=== PATIENT | male | born 1970 | race Caucasian/White ===

== ENCOUNTER 2021-01-27 08:18 | Observation (INO) | payer BC, OTHER ==
--- NOTE | 2021-01-27 08:57 | EDM.PDOC ---
ED HPI GENERAL MEDICAL PROBLEM - General Chief Complaint: Chest Pain Stated Complaint: CHEST PAIN Time Seen by Provider: 01/27/21 08:46 Source of Information: Reports: Patient - History of Present Illness INITIAL COMMENTS - FREE TEXT/NARRATIVE: 50-year-old male history of hypertension diabetes and obesity presents complaining of chest discomfort. He states that it started on Tuesday and was present all day yesterday. He states it feels like a water balloon in his chest like he needs to burp and get the air out. He has noticed that he has been coughing has had some chills and then the glands around his neck are tender. No [place] fever. Patient is vaccinated against Covid. Symptoms have been constant throughout all day yesterday as well. Not worse with movement, cough, inspiration. Mildly improved with belching. Moderate symptoms. Patient denies history of blood clot. No swelling in the legs. No recent travel or injury or cancer or surgery. Patient states he had a stress test many years ago but nothing recently. Upper Anterior Chest Pain Score (Numeric/FACES): 3 - Related Data Allergies Allergy/AdvReac Type Severity Reaction Status Date / Time No Known Allergies Allergy Verified 01/27/21 08:25 Home Meds: Home Meds Allopurinol [Zyloprim] 1 tab PO DAILY 01/27/21 [History] Insulin Glargine,Hum.Rec.Anlog [Touafshin Solostar] 88 units INJECT DAILY 01/27/21 [History] Lisinopril/Hydrochlorothiazide [Lisinopril-HCTZ 10-12.5 MG] 1 tab PO DAILY 01/27/21 [History] Pravastatin [Pravachol] 20 mg PO DAILY 01/27/21 [History] Semaglutide [Ozempic] 0.25 mg SQ Q7D 01/27/21 [History] metFORMIN [Glucophage XR] 1,000 mg PO DAILY 01/27/21 [History] Past Medical History HEENT History: Reports: Impaired Vision Other HEENT History: wears glasses Cardiovascular History: Reports: High Cholesterol, Hypertension Respiratory History: Reports: Bronchitis, Recurrent Gastrointestinal History: Reports: GERD Endocrine/Metabolic History: Reports: Diabetes, Type II - Infectious Disease History Infectious Disease History: Reports: Chicken Pox - Past Surgical History HEENT Surgical History: Reports: Oral Surgery Cardiovascular Surgical History: Reports: None GI Surgical History: Reports: None Social & Family History - Family History Family Medical History: No Pertinent Family History - Tobacco Use Tobacco Use Status *Q: Former Tobacco User Years of Tobacco use: 5 Packs/Tins Daily: 1 Used Tobacco, but Quit: Yes Month/Year Tobacco Last Used: 12/2001 - Caffeine Use Caffeine Use: Reports: Coffee - Alcohol Use Days Per Week of Alcohol Use: 1 Number of Drinks Per Day: 6 Total Drinks Per Week: 6 - Recreational Drug Use Recreational Drug Use: No ED ROS GENERAL - Review of Systems Review Of Systems: See Below Constitutional: Reports: Chills. Denies: Fever HEENT: Reports: Other (Tenderness to the glans near his neck). Denies: Throat Pain Respiratory: Reports: Other (Patient is always short of breath when he walks because he says he is out of shape and perhaps this could be a little bit worse) Cardiovascular: Reports: Chest Pain, Other (She states many years ago they placed him on a Holter monitor) GI/Abdominal: Reports: No Symptoms : Reports: No Symptoms Musculoskeletal: Reports: Other (Leg swelling) Skin: Reports: No Symptoms Neurological: Reports: No Symptoms Psychiatric: Reports: No Symptoms Hematologic/Lymphatic: Reports: No Symptoms ED EXAM, GENERAL - Physical Exam Exam: See Below Free Text/Narrative:: CONSTITUTIONAL: well appearing in no acute distress SKIN: Warm, dry, and intact without rash HENT: Normocephalic, atraumatic, PULMONARY: clear to ausculation bilaterally. No rales, rhonchi, wheezing CARDIOVASCULAR: regular rate, No murmur, rubs, or gallops GASTROINTESTINAL: soft, nondistended, nontender NEUROLOGIC: normal speech, light touch and motor function grossly intact MUSCULOSKELETAL: no gross deformities, atraumatic PSYCHIATRIC: normal mood and affect #1 Interpretation Time: 08:20 EKG Interpretation Comments: EKG: NSR, nonspecific ST/T changes, Rate -82. Cannot exclude delta wave Course - Vital Signs Text/Narrative:: Patient reevaluated and now the and patient are using the terms pressure. I walked the patient and did not make the chest discomfort present. Patient still has chest discomfort that is present. The story is now changing a bit and that there does not seem to be too much of a cough. There was maybe some mild cough at one point in time for very short period of time yesterday. Have not heard the patient cough here. Patient is now saying that the neck discomfort is not uncomfortable when he presses in the lymph nodes but he just feels it on both sides of the neck. This could be radiation. Patient was complaining of some degree of headache which I thought likely indicated more toward infectious etiology but states he gets headache every day so this cannot be reliably a sign of infection at this immediate time. There was patient states he was not able to get warm yesterday but they took his temperature at that time there was no fever. Given the patient's risk factors and description of the pain patient be admitted for telemetry monitoring and serial cardiac enzymes. Patient given aspirin and nitro. Last Recorded V/S: Last Vital Signs Temp 37.2 C 01/27/21 08:31 Pulse 86 01/27/21 10:23 Resp 18 01/27/21 10:23 BP 124/75 01/27/21 10:23 Pulse Ox 95 01/27/21 10:23 - Orders/Labs/Meds Orders: Active Orders 24 hr Category Date Time Status Aspirin Med 01/27/21 10:45 Ordered 162 mg PO DAILY Nitroglycerin [Nitrostat] Med 01/27/21 10:40 Once 0.4 mg SL ONETIME ONE Labs: Laboratory Tests 01/27/21 01/27/21 01/27/21 Range/Units 08:20 08:20 08:20 WBC 5.43 (4.0-11.0) K/uL RBC 4.88 (4.50-5.90) M/uL Hgb 15.1 (13.0-17.0) g/dL Hct 44.7 (38.0-50.0) % MCV 91.6 (80.0-98.0) fL MCH 30.9 (27.0-32.0) pg MCHC 33.8 (31.0-37.0) g/dL RDW Std Deviation 45.0 (28.0-62.0) fl RDW Coeff of Reba 14 (11.0-15.0) % Plt Count 168 (150-400) K/uL MPV 11.50 (7.40-12.00) fL Neut % (Auto) 75.1 (48.0-80.0) % Lymph % (Auto) 13.3 L (16.0-40.0) % [place] % (Auto) 8.1 (0.0-15.0) % Eos % (Auto) 3.3 (0.0-7.0) % Baso % (Auto) 0.2 (0.0-1.5) % Neut # (Auto) 4.1 (1.4-5.7) K/uL Lymph # (Auto) 0.7 (0.6-2.4) K/uL [place] # (Auto) 0.4 (0.0-0.8) K/uL Eos # (Auto) 0.2 (0.0-0.7) K/uL Baso # (Auto) 0.0 (0.0-0.1) K/uL Nucleated RBC % 0.0 /100WBC Nucleated RBCs # 0 K/uL INR 0.92 Sodium 138 (136-148) mmol/L Potassium 4.5 (3.5-5.1) mmol/L Chloride 103 (98-107) mmol/L Carbon Dioxide 25.0 (21.0-32.0) mmol/L BUN 29 H (7.0-18.0) mg/dL Creatinine 1.6 H (0.8-1.3) mg/dL Est Cr Clr Drug Dosing 50.95 mL/min Estimated GFR (MDRD) 46.4 ml/min Glucose 147 H (74-106) mg/dL POC Glucose (70-99) mg/dL Calcium 8.3 L (8.5-10.1) mg/dL Total Bilirubin 0.5 (0.2-1.0) mg/dL AST 17 (15-37) IU/L ALT 39 (14-63) IU/L Alkaline Phosphatase 112 (46-116) U/L Troponin I < 0.050 (0.000-0.056) ng/mL B-Natriuretic Peptide (<100) PG/ML Total Protein 6.9 (6.4-8.2) g/dL Albumin 3.1 L (3.4-5.0) g/dL Globulin 3.8 (2.6-4.0) g/dL Albumin/Globulin Ratio 0.8 L (0.9-1.6) SARS-CoV-2 RNA (KVNG) (NEGATIVE) 01/27/21 01/27/21 01/27/21 Range/Units 08:20 09:01 10:26 WBC (4.0-11.0) K/uL RBC (4.50-5.90) M/uL Hgb (13.0-17.0) g/dL Hct (38.0-50.0) % MCV (80.0-98.0) fL MCH (27.0-32.0) pg MCHC (31.0-37.0) g/dL RDW Std Deviation (28.0-62.0) fl RDW Coeff of Reba (11.0-15.0) % Plt Count (150-400) K/uL MPV (7.40-12.00) fL Neut % (Auto) (48.0-80.0) % Lymph % (Auto) (16.0-40.0) % [place] % (Auto) (0.0-15.0) % Eos % (Auto) (0.0-7.0) % Baso % (Auto) (0.0-1.5) % Neut # (Auto) (1.4-5.7) K/uL Lymph # (Auto) (0.6-2.4) K/uL [place] # (Auto) (0.0-0.8) K/uL Eos # (Auto) (0.0-0.7) K/uL Baso # (Auto) (0.0-0.1) K/uL Nucleated RBC % /100WBC Nucleated RBCs # K/uL INR Sodium (136-148) mmol/L Potassium (3.5-5.1) mmol/L Chloride (98-107) mmol/L Carbon Dioxide (21.0-32.0) mmol/L BUN (7.0-18.0) mg/dL Creatinine (0.8-1.3) mg/dL Est Cr Clr Drug Dosing mL/min Estimated GFR (MDRD) ml/min Glucose (74-106) mg/dL POC Glucose 139 H (70-99) mg/dL Calcium (8.5-10.1) mg/dL Total Bilirubin (0.2-1.0) mg/dL AST (15-37) IU/L ALT (14-63) IU/L Alkaline Phosphatase (46-116) U/L Troponin I (0.000-0.056) ng/mL B-Natriuretic Peptide < 2 (<100) PG/ML Total Protein (6.4-8.2) g/dL Albumin (3.4-5.0) g/dL Globulin (2.6-4.0) g/dL Albumin/Globulin Ratio (0.9-1.6) SARS-CoV-2 RNA (KVNG) NEGATIVE (NEGATIVE) Meds: Medications Discontinued Medications Generic Name Dose Route Start Last Admin Trade Name Annalisa PRN Reason Stop Dose Admin Ibuprofen 600 mg 01/27/21 09:37 01/27/21 09:46 Ibuprofen 600 Mg Tab PO 01/27/21 09:38 600 mg ONETIME ONE Administration Departure - Departure Time of Disposition: 10:46 Disposition: Admitted As Inpatient 68 Condition: Good Clinical Impression: Chest pain - Discharge Information Referrals: PCP,None [Primary Care Provider] - Forms: ED Department Discharge Sepsis Event Note (ED) - Evaluation Sepsis Screening Result: No Definite Risk - Focused Exam Vital Signs: Vital Signs Temp Pulse Resp BP Pulse Ox 01/27/21 10:23 86 18 124/75 95 01/27/21 09:47 79 16 127/76 98 01/27/21 08:31 37.2 C 80 16 149/83 H 98 - My Orders Last 24 Hours: My Active Orders 01/27/21 10:40 Nitroglycerin [Nitrostat] 0.4 mg SL ONETIME ONE 01/27/21 10:45 Aspirin 162 mg PO DAILY - Assessment/Plan Last 24 Hours: My Active Orders 01/27/21 10:40 Nitroglycerin [Nitrostat] 0.4 mg SL ONETIME ONE 01/27/21 10:45 Aspirin 162 mg PO DAILY
[2021-01-27 09:19] LABS: BLOOD UREA NITROGEN,BUN 29 mg/dL (7.0-18.0); CHLORIDE,CL 103 mmol/L (98-107); GLUCOSE RANDOM 147 mg/dL (74-106); POTASSIUM,K 4.5 mmol/L (3.5-5.1); SODIUM,NA 138 mmol/L (136-148)
[2021-01-27] MEDS ORDERED: Ibuprofen 600 MG Tab PO ONE (09:37)
--- NOTE | 2021-01-27 09:48 | CR ---
Indication: Chest Pain Comparison: CT chest March 23, 2019 Technique: Single AP view chest Findings: There is hyperinflation and chronic interstitial change. There is calcified granuloma seen within the right lung base. There is basilar atelectasis versus parenchymal scarring. The cardiac silhouette is mildly prominent. The bony thorax is grossly intact. Impression: Hyperinflation and chronic interstitial change with stable sequela of granulomatous disease. No dense consolidation. Dictated by Raciel Parr MD @ 01/27/2021 9:46:15 AM (Electronically Signed)
[2021-01-27] MEDS ORDERED: Nitroglycerin 0.4 MG Tab.SL SL ONE (10:40)
[2021-01-27] MEDS: Aspirin 81 MG Tab.Chew PO SCH (10:46)
[2021-01-27] MEDS ORDERED: Glucagon,Human Recombinant 1 MG Vial IM PRN (14:31)
[2021-01-27] MEDS ORDERED: 50% Dextrose in Water 50 ML Syringe IVPUSH PRN (14:31)
--- NOTE | 2021-01-27 16:38 | PCM.HP.2 ---
H&P History of Present Illness - General Date of Service: 01/27/21 Admit Problem/Dx: Admission Diagnosis/Problem Admission Diagnosis/Problem Chest pain - History of Present Illness Initial Comments - Free Text/Narative: 50 yo male with pmh of hypertension and DM who presents with a three day history of chest pain. The pain is a constant substernal burn that radiates to the throat. Sometimes he has a burbing sensation. Pain does not change with rest or exertion. Upper Anterior Chest Pain Score (Numeric/FACES): 2 - Related Data Allergies/Adverse Reactions: Allergies Allergy/AdvReac Type Severity Reaction Status Date / Time No Known Allergies Allergy Verified 01/27/21 15:35 Home Medications: Home Meds Allopurinol [Zyloprim] 1 tab PO DAILY 01/27/21 [History] Insulin Glargine,Hum.Rec.Anlog [Toujeo Solostar] 88 units INJECT DAILY 01/27/21 [History] Lisinopril/Hydrochlorothiazide [Lisinopril-HCTZ 10-12.5 MG] 1 tab PO DAILY 01/27/21 [History] Pravastatin [Pravachol] 20 mg PO DAILY 01/27/21 [History] Semaglutide [Ozempic] 0.25 mg SQ Q7D 01/27/21 [History] metFORMIN [Glucophage XR] 1,000 mg PO DAILY 01/27/21 [History] Omeprazole 20 mg PO DAILY #20 tablet. 01/28/21 [Rx] Past Medical History HEENT History: Reports: Impaired Vision Other HEENT History: wears glasses Cardiovascular History: Reports: High Cholesterol, Hypertension Respiratory History: Reports: Bronchitis, Recurrent Gastrointestinal History: Reports: GERD Musculoskeletal History: Reports: Gout Endocrine/Metabolic History: Reports: Diabetes, Type II - Infectious Disease History Infectious Disease History: Reports: Chicken Pox - Past Surgical History HEENT Surgical History: Reports: Oral Surgery Cardiovascular Surgical History: Reports: None GI Surgical History: Reports: None Social & Family History - Family History Family Medical History: No Pertinent Family History - Tobacco Use Tobacco Use Status *Q: Former Tobacco User Years of Tobacco use: 5 Packs/Tins Daily: 1 Used Tobacco, but Quit: Yes Month/Year Tobacco Last Used: 2001 Second Hand Smoke Exposure: No - Caffeine Use Caffeine Use: Reports: Coffee - Alcohol Use Days Per Week of Alcohol Use: 1 Number of Drinks Per Day: 6 Total Drinks Per Week: 6 - Recreational Drug Use Recreational Drug Use: No H&P Review of Systems - Review of Systems: Review Of Systems: Comprehensive ROS is negative, except as noted in HPI. Exam - Exam Exam: See Below - Vital Signs Vital Signs: Last Vital Signs Temp 36.3 C 01/27/21 16:28 Pulse 75 01/27/21 16:28 Resp 18 01/27/21 16:28 BP 160/74 H 01/27/21 16:28 Pulse Ox 99 01/27/21 16:28 Weight: 112.718 kg - Exam General: Alert, Severe Distress HEENT: Mucosa Moist & [place] Lungs: Clear to Auscultation, Normal Respiratory Effort Cardiovascular: Regular Rate, Regular Rhythm GI/Abdominal Exam: Normal Bowel Sounds, Soft, Non-Tender Extremities: Non-Tender, No Pedal Edema Skin: Warm, Dry, Intact Neurological: No: Focal Deficit - Patient Data Lab Results Last 24 hrs: Laboratory Results - last 24 hr 01/27/21 01/27/21 01/27/21 Range/Units 08:20 08:20 08:20 WBC 5.43 (4.0-11.0) K/uL RBC 4.88 (4.50-5.90) M/uL Hgb 15.1 (13.0-17.0) g/dL Hct 44.7 (38.0-50.0) % MCV 91.6 (80.0-98.0) fL MCH 30.9 (27.0-32.0) pg MCHC 33.8 (31.0-37.0) g/dL RDW Std Deviation 45.0 (28.0-62.0) fl RDW Coeff of Reba 14 (11.0-15.0) % Plt Count 168 (150-400) K/uL MPV 11.50 (7.40-12.00) fL Neut % (Auto) 75.1 (48.0-80.0) % Lymph % (Auto) 13.3 L (16.0-40.0) % [place] % (Auto) 8.1 (0.0-15.0) % Eos % (Auto) 3.3 (0.0-7.0) % Baso % (Auto) 0.2 (0.0-1.5) % Neut # (Auto) 4.1 (1.4-5.7) K/uL Lymph # (Auto) 0.7 (0.6-2.4) K/uL [place] # (Auto) 0.4 (0.0-0.8) K/uL Eos # (Auto) 0.2 (0.0-0.7) K/uL Baso # (Auto) 0.0 (0.0-0.1) K/uL Nucleated RBC % 0.0 /100WBC Nucleated RBCs # 0 K/uL INR 0.92 Sodium 138 (136-148) mmol/L Potassium 4.5 (3.5-5.1) mmol/L Chloride 103 (98-107) mmol/L Carbon Dioxide 25.0 (21.0-32.0) mmol/L BUN 29 H (7.0-18.0) mg/dL Creatinine 1.6 H (0.8-1.3) mg/dL Est Cr Clr Drug Dosing 50.95 mL/min Estimated GFR (MDRD) 46.4 ml/min Glucose 147 H (74-106) mg/dL POC Glucose (70-99) mg/dL Calcium 8.3 L (8.5-10.1) mg/dL Total Bilirubin 0.5 (0.2-1.0) mg/dL AST 17 (15-37) IU/L ALT 39 (14-63) IU/L Alkaline Phosphatase 112 (46-116) U/L Troponin I < 0.050 (0.000-0.056) ng/mL B-Natriuretic Peptide (<100) PG/ML Total Protein 6.9 (6.4-8.2) g/dL Albumin 3.1 L (3.4-5.0) g/dL Globulin 3.8 (2.6-4.0) g/dL Albumin/Globulin Ratio 0.8 L (0.9-1.6) SARS-CoV-2 RNA (KVNG) (NEGATIVE) 01/27/21 01/27/21 01/27/21 Range/Units 08:20 09:01 10:26 WBC (4.0-11.0) K/uL RBC (4.50-5.90) M/uL Hgb (13.0-17.0) g/dL Hct (38.0-50.0) % MCV (80.0-98.0) fL MCH (27.0-32.0) pg MCHC (31.0-37.0) g/dL RDW Std Deviation (28.0-62.0) fl RDW Coeff of Reba (11.0-15.0) % Plt Count (150-400) K/uL MPV (7.40-12.00) fL Neut % (Auto) (48.0-80.0) % Lymph % (Auto) (16.0-40.0) % [place] % (Auto) (0.0-15.0) % Eos % (Auto) (0.0-7.0) % Baso % (Auto) (0.0-1.5) % Neut # (Auto) (1.4-5.7) K/uL Lymph # (Auto) (0.6-2.4) K/uL [place] # (Auto) (0.0-0.8) K/uL Eos # (Auto) (0.0-0.7) K/uL Baso # (Auto) (0.0-0.1) K/uL Nucleated RBC % /100WBC Nucleated RBCs # K/uL INR Sodium (136-148) mmol/L Potassium (3.5-5.1) mmol/L Chloride (98-107) mmol/L Carbon Dioxide (21.0-32.0) mmol/L BUN (7.0-18.0) mg/dL Creatinine (0.8-1.3) mg/dL Est Cr Clr Drug Dosing mL/min Estimated GFR (MDRD) ml/min Glucose (74-106) mg/dL POC Glucose 139 H (70-99) mg/dL Calcium (8.5-10.1) mg/dL Total Bilirubin (0.2-1.0) mg/dL AST (15-37) IU/L ALT (14-63) IU/L Alkaline Phosphatase (46-116) U/L Troponin I (0.000-0.056) ng/mL B-Natriuretic Peptide < 2 (<100) PG/ML Total Protein (6.4-8.2) g/dL Albumin (3.4-5.0) g/dL Globulin (2.6-4.0) g/dL Albumin/Globulin Ratio (0.9-1.6) SARS-CoV-2 RNA (KVNG) NEGATIVE (NEGATIVE) 01/27/21 01/27/21 Range/Units 11:16 15:34 WBC (4.0-11.0) K/uL RBC (4.50-5.90) M/uL Hgb (13.0-17.0) g/dL Hct (38.0-50.0) % MCV (80.0-98.0) fL MCH (27.0-32.0) pg MCHC (31.0-37.0) g/dL RDW Std Deviation (28.0-62.0) fl RDW Coeff of Reba (11.0-15.0) % Plt Count (150-400) K/uL MPV (7.40-12.00) fL Neut % (Auto) (48.0-80.0) % Lymph % (Auto) (16.0-40.0) % [place] % (Auto) (0.0-15.0) % Eos % (Auto) (0.0-7.0) % Baso % (Auto) (0.0-1.5) % Neut # (Auto) (1.4-5.7) K/uL Lymph # (Auto) (0.6-2.4) K/uL [place] # (Auto) (0.0-0.8) K/uL Eos # (Auto) (0.0-0.7) K/uL Baso # (Auto) (0.0-0.1) K/uL Nucleated RBC % /100WBC Nucleated RBCs # K/uL INR Sodium (136-148) mmol/L Potassium (3.5-5.1) mmol/L Chloride (98-107) mmol/L Carbon Dioxide (21.0-32.0) mmol/L BUN (7.0-18.0) mg/dL Creatinine (0.8-1.3) mg/dL Est Cr Clr Drug Dosing mL/min Estimated GFR (MDRD) ml/min Glucose (74-106) mg/dL POC Glucose 91 (70-99) mg/dL Calcium (8.5-10.1) mg/dL Total Bilirubin (0.2-1.0) mg/dL AST (15-37) IU/L ALT (14-63) IU/L Alkaline Phosphatase (46-116) U/L Troponin I < 0.050 (0.000-0.056) ng/mL B-Natriuretic Peptide (<100) PG/ML Total Protein (6.4-8.2) g/dL Albumin (3.4-5.0) g/dL Globulin (2.6-4.0) g/dL Albumin/Globulin Ratio (0.9-1.6) SARS-CoV-2 RNA (KVNG) (NEGATIVE) Result Diagrams: 01/27/21 08:20 01/27/21 08:20 Sepsis Event Note - Evaluation Sepsis Screening Result: No Definite Risk - Focused Exam Vital Signs: Vital Signs Temp Pulse Resp BP BP Pulse Ox 01/27/21 16:28 36.3 C 75 18 160/74 H 99 01/27/21 15:25 35.9 C L 84 17 141/82 H 97 01/27/21 11:30 83 16 121/72 95 01/27/21 10:47 134/86 01/27/21 10:23 86 18 124/75 95 01/27/21 09:47 79 16 127/76 98 01/27/21 08:31 37.2 C 80 16 149/83 H 98 - Problem List (1) Chest pain SNOMED Code(s): 40995965 ICD Code: R07.9 - CHEST PAIN, UNSPECIFIED Status: Acute Current Visit: Yes Problem List Initiated/Reviewed/Updated: Yes Orders Last 24hrs: Active Orders 24 hr Category Date Time Status Admission Status [Patient Status] [ADT] Stat ADT 01/27/21 12:24 Active Antiembolic Devices [RC] PER UNIT ROUTINE Care 01/27/21 16:35 Ordered Blood Glucose Check, Bedside [RC] TIDAC Care 01/27/21 14:31 Active Oxygen Therapy [RC] PRN Care 01/27/21 16:34 Ordered Up ad Sarah [RC] ASDIRECTED Care 01/27/21 16:34 Ordered VTE/DVT Education [RC] PER UNIT ROUTINE Care 01/27/21 16:34 Ordered Vital Signs [RC] Q4H Care 01/27/21 16:34 Ordered [employer] Diet [DIET] Diet 01/27/21 Breakfast Active TROPONIN I [CHEM] Q6H Lab 01/27/21 17:00 Ordered TROPONIN I [CHEM] Q6H Lab 01/27/21 23:00 Ordered Aspirin Med 01/27/21 10:45 Active 162 mg PO DAILY Dextrose 50% in Water Med 01/27/21 14:31 Active 50 ml IVPUSH ASDIRECTED PRN Glucagon,Human Recombinant [GlucaGen] Med 01/27/21 14:31 Active 1 mg IM ASDIRECTED PRN Insulin Aspart [NovoLOG] Med 01/27/21 17:00 Active See Protocol SUBCUT TIDAC Lisinopril/Hydrochlorothiazide [Lisinopril-HCTZ 10-12.5 Med 01/28/21 09:00 Ordered MG] 1 tab PO DAILY Pantoprazole [ProTONIX IV] 40 mg Med 01/27/21 16:35 Ordered Sodium Chloride 0.9% [Normal Saline] 10 ml IV NOW Pravastatin Med 01/28/21 09:00 Ordered 20 mg PO DAILY allopurinoL [Zyloprim] Med 01/28/21 09:00 Ordered 300 mg PO DAILY Sequential Compression Device [OM.PC] Per Unit Routine Oth 01/27/21 16:34 Ordered Resuscitation Status Routine Resus Stat 01/27/21 16:34 Ordered Medication Orders Allopurinol (Allopurinol 300 Mg Tab) 300 mg PO DAILY [facility] Aspirin (Aspirin 81 Mg Tab.Chew) 162 mg PO DAILY [facility] Last Admin: 01/27/21 10:46 Dose: 162 mg Documented by: GIGI Dextrose/Water (50% Dextrose In Water 50 Ml Syringe) 50 ml IVPUSH ASDIRECTED PRN PRN Reason: Hypoglycemia Glucagon (Glucagon,Human Recombinant 1 Mg Vial) 1 mg IM ASDIRECTED PRN PRN Reason: Hypoglycemia Lisinopril/HCTZ (Lisinopril/Hydrochlorothiazide 10-12.5 Mg Tab) 1 tab PO DAILY [facility] Pantoprazole Sodium 40 mg/ (Sodium Chloride) 10 mls @ 300 mls/hr IV NOW ONE Stop: 01/27/21 16:36 Insulin Aspart (Insulin Aspart 100 Units/Ml 3 Ml Pen) 0 unit SUBCUT TIDAC [facility]; Protocol Non-Formulary Medication (Pravastatin) 20 mg PO DAILY [facility] Assessment/Plan Comment:: 50 yo male admitted with chest pain. He ruled out for acute coronary syndrome with serial negative cardia enzymes and EKG. He was discharge on a trial of PPI and is to follow up with Dr. Santo. He was referred to outpatient cardiac stress test.
[2021-01-27] MEDS ORDERED: Pantoprazole 40 MG in Sodium Chloride 0.9% 10 ML IV ONE (16:50)
[2021-01-27] MEDS: Insulin Aspart 100 Units/ML 3 ML Pen SUBCUT SCH (17:29)
[2021-01-27] MEDS ORDERED: Acetaminophen 325 MG Tab PO PRN (23:29)
[2021-01-28] MEDS: Insulin Aspart 100 Units/ML 3 ML Pen SUBCUT SCH (07:43)
[2021-01-28] MEDS: Aspirin 81 MG Tab.Chew PO SCH (08:35)
[2021-01-28] MEDS ORDERED: Allopurinol 300 MG Tab PO SCH (09:00)
[2021-01-28] MEDS ORDERED: Hydrochlorothiazide 12.5 MG Cap PO SCH (09:00)
[2021-01-28] MEDS ORDERED: Pravastatin 40 MG Tab PO SCH (09:00)
[2021-01-28] MEDS ORDERED: Lisinopril 10 MG Tab PO SCH (09:00)
== END 2021-01-28 10:52 | disposition home or self-care (01) ==
LOC: MW.ED 08:18 → UNDOADMOB 12:24 → MW.MS 12:24
PROVIDERS: ADMIT Internal Medicine; ATTEND Internal Medicine
DX: R07.2 Precordial pain (principal); E11.9 Type 2 diabetes mellitus without complications; E78.00 Pure hypercholesterolemia, unspecified; K21.9 Gastro-esophageal reflux disease without esophagitis; M10.9 Gout, unspecified; Z79.84 Long term (current) use of oral hypoglycemic drugs; Z98.890 Other specified postprocedural states; Z87.891 Personal history of nicotine dependence; Z20.822 Contact with and (suspected) exposure to COVID-19; Z79.899 Other long term (current) drug therapy; Z79.4 Long term (current) use of insulin
CPT/HCPCS: 36415; 71045; 80053; 82947; 83880; 84484; 85025; 85610; 87635; 93005; 96374; 99285; A9270; C9113; G0378; U0002

== ENCOUNTER 2021-05-27 08:10 | Day surgery (SDC) | payer BC ==
[~2021-05-27 08:10] MED LIST: Acetaminophen 1,000 MG in Premix Bag 1 BAG IV SCH; Albuterol 0.083% 2.5 MG/3 ML Neb Soln NEB PRN; HYDROmorphone 1 MG/ML Syringe IVPUSH PRN; Lactated Ringers 1,000 ML IV SCH; Metoclopramide 10 MG/2 ML SDV IVPUSH PRN; Morphine 4 MG/ML VIAL IVPUSH PRN; Naloxone 0.4 MG/ML SDV IVPUSH PRN; Ondansetron 4 MG/2 ML SDV IVPUSH PRN; Pregabalin 75 MG Cap PO SCH; Water For Injection, Sterile 20 ML ONE; ceFAZolin 2 GM in Premix Bag 1 BAG IV SCH; fentaNYL 100 MCG/2 ML SDV IVPUSH PRN
[2021-05-27] MEDS ORDERED: Ropivacaine 0.5% 5 MG/ML 30 ML SDV ONE (08:11)
[2021-05-27] MEDS ORDERED: Midazolam 1 MG/ML 2 ML SDV ONE (08:20)
[2021-05-27] MEDS ORDERED: Propofol 200 MG/20 ML SDV ONE (08:21)
[2021-05-27] MEDS ORDERED: fentaNYL 100 MCG/2 ML SDV ONE ×2 (08:21→10:58)
[2021-05-27] MEDS ORDERED: Ondansetron 4 MG/2 ML SDV ONE (08:21)
[2021-05-27] MEDS ORDERED: Rocuronium Bromide 50 MG/5 ML Syringe ONE (09:14)
[2021-05-27] MEDS ORDERED: Sugammadex Sodium 200 MG/2 ML VIAL ONE (09:15)
[2021-05-27] MEDS ORDERED: Bupivacaine 0.5% 10 ML SDV ONE (09:38)
[2021-05-27] MEDS ORDERED: Octyl 2-Cyanoacrylate 1 Tube ONE (09:38)
[2021-05-27] MEDS ORDERED: ceFAZolin 1 GM Vial ONE (10:13)
[2021-05-27] MEDS ORDERED: Acetaminophen/HYDROcodone 325-5 MG Tab PO ONE (12:19)
== END 2021-05-27 13:30 | disposition home or self-care (01) ==
LOC: MW.SDS 08:10
PROVIDERS: ATTEND Surgery
DX: K42.9 Umbilical hernia without obstruction or gangrene (principal); I10 Essential (primary) hypertension; E11.9 Type 2 diabetes mellitus without complications; E78.00 Pure hypercholesterolemia, unspecified; E66.9 Obesity, unspecified; Z68.30 Body mass index [BMI] 30.0-30.9, adult; Z98.61 Coronary angioplasty status; Z79.4 Long term (current) use of insulin; Z79.84 Long term (current) use of oral hypoglycemic drugs; Z79.899 Other long term (current) drug therapy; Z87.891 Personal history of nicotine dependence
CPT/HCPCS: 49585; 82947; A9270; C1781; J0131; J0690; J1170; J2250; J2405; J2704; J2795; J3010; J3490; J7120; 00750; 64488

== ENCOUNTER 2022-06-04 06:41 | Day surgery (SDC) | payer BC ==
[~2022-06-04 06:41] MED LIST changes: -Acetaminophen 1,000 MG in Premix Bag 1 BAG IV SCH; -Albuterol 0.083% 2.5 MG/3 ML Neb Soln NEB PRN; -HYDROmorphone 1 MG/ML Syringe IVPUSH PRN; -Metoclopramide 10 MG/2 ML SDV IVPUSH PRN; -Morphine 4 MG/ML VIAL IVPUSH PRN; -Naloxone 0.4 MG/ML SDV IVPUSH PRN; -Ondansetron 4 MG/2 ML SDV IVPUSH PRN; -Pregabalin 75 MG Cap PO SCH; -Water For Injection, Sterile 20 ML ONE; -ceFAZolin 2 GM in Premix Bag 1 BAG IV SCH; -fentaNYL 100 MCG/2 ML SDV IVPUSH PRN
[2022-06-04] MEDS ORDERED: Propofol 200 MG/20 ML SDV ONE (07:33)
[2022-06-04] MEDS ORDERED: Lidocaine 2% 5 ML SDV ONE (07:33)
[2022-06-04] MEDS ORDERED: fentaNYL 100 MCG/2 ML SDV ONE (07:34)
== END 2022-06-04 08:55 | disposition home or self-care (01) ==
LOC: MW.SDS 06:41
PROVIDERS: ATTEND Surgery
DX: Z12.11 Encounter for screening for malignant neoplasm of colon (principal); D12.6 Benign neoplasm of colon, unspecified; K62.1 Rectal polyp; K64.8 Other hemorrhoids; E11.9 Type 2 diabetes mellitus without complications; J45.909 Unspecified asthma, uncomplicated; I10 Essential (primary) hypertension; M10.9 Gout, unspecified; Z79.84 Long term (current) use of oral hypoglycemic drugs; Z79.899 Other long term (current) drug therapy; Z87.891 Personal history of nicotine dependence
CPT/HCPCS: 45380; J2704; J3010; J7120; J3490

== ENCOUNTER 2023-10-01 05:58 | Emergency (ER) | payer BC ==
[2023-10-01] MEDS: Proparacaine 0.5% Ophth Soln 15 ML Bottle EYELF STA (06:48)
[2023-10-01] MEDS: Fluorescein 1 MG Ophth Strip EYELF ONE (06:49)
[2023-10-01] MEDS: Diphtheria,Pertussis(Acell),Tetanus Vaccine 0.5 ML Syringe IM ONE (08:07)
== END 2023-10-01 08:32 | disposition home or self-care (01) ==
LOC: MW.ED 05:58
DX: H57.89 Other specified disorders of eye and adnexa (principal); I10 Essential (primary) hypertension; E78.00 Pure hypercholesterolemia, unspecified; J45.909 Unspecified asthma, uncomplicated; E11.9 Type 2 diabetes mellitus without complications; E66.9 Obesity, unspecified; Z68.38 Body mass index [BMI] 38.0-38.9, adult; Z23 Encounter for immunization; Z79.899 Other long term (current) drug therapy; Z79.84 Long term (current) use of oral hypoglycemic drugs; Z75.8 Other problems related to medical facilities and other health care
CPT/HCPCS: 90471; 90715; 99282-25; J3490